=== PATIENT | male | born 1985 | race African-American/Black ===

== ENCOUNTER 2022-02-12 13:50 | Emergency (ER) | payer BC ==
[~2022-02-12] VITALS: Ht 180.3 cm; Wt 122.0 kg
[2022-02-12 14:13] VITALS: BP 160/98
[2022-02-12] MEDS ORDERED: OMEP20CA14 PO (14:17)
[2022-02-12] MEDS ORDERED: METH-653 MT (17:38)
[2022-02-12] MEDS ORDERED: IBUP-2029 MT (17:38)
== END 2022-02-12 17:58 | disposition home or self-care (01) ==
LOC: ER 14:10
DX: R10.9 Unspecified abdominal pain (principal)
CPT/HCPCS: 74176; 99284